=== PATIENT | female | born 1995 | race Two or more races ===

== ENCOUNTER 2021-09-16 18:54 | Emergency (ER) | payer BC ==
[~2021-09-16] VITALS: Ht 157.5 cm; Wt 43.1 kg
[2021-09-16] MEDS ORDERED: GENTAFAIR5 ML OP (22:55)
== END 2021-09-16 23:12 | disposition home or self-care (01) ==
LOC: ER 18:54
DX: H10.89 Other conjunctivitis (principal); B96.89 Other specified bacterial agents as the cause of diseases classified elsewhere